=== PATIENT | female | born 1980 | race Caucasian/White ===

== ENCOUNTER → 2018-08-18 | Outpatient (CLI) | payer OTHER ==
[~2018-08-18] MED LIST: CYCL-181; IBUP100T6; NORPTMEDS CO; TRAM100T37 PO
== END | disposition home or self-care (01) ==
LOC: LAB 13:32
PROVIDERS: ATTEND Preventive Medicine Preventive Medicine/Occupational Environmental Medicine
DX: Z02.1 Encounter for pre-employment examination (principal)
CPT/HCPCS: 86735; 86762; 86765